=== PATIENT | male | born 1970 | race Caucasian/White ===

== ENCOUNTER 2016-10-03 11:54 | Emergency (ER) | payer MEDICAID ==
[2016-10-03 12:01] VITALS: RESP 18
[2016-10-03 12:23] LABS: COLOR YELLOW; LEUKOCYTE ESTERASE,URINE NEGATIVE (NEGATIVE); NITRITE,URINE NEGATIVE (NEGATIVE)
[2016-10-03] MEDS ORDERED: ONDANSETRON DISINTEGRATING 4 MG TAB PO ONE (12:27)
[2016-10-03] MEDS ORDERED: NS 500 ML IV ONE (12:27)
--- NOTE | 2016-10-03 12:33 | EDPHY ---
General - History Smoking Status: Current every day smoker Narrative: CHIEF COMPLAINT: Testicular pain and swelling HISTORY OF PRESENT ILLNESS: Testicular pain and swelling over the past 6 days. Mild on Tuesday. Now moderate to severe. No position of comfort. Worse with any kind of movement or palpation. Radiates up into the groin. No burning with urination but sometimes difficult to urinate. No fever or chills. No purulence or blood from the urethral meatus. He is not sexually active in months. No fever chills. No flank pain. No generalized abdominal pain. No other associated complaints or modifying factors. PREVIOUS SURGERIES/DIAGNOSES: hydroceles x2, surgically repaired last year In [place] NPO: 2 hours REVIEW OF SYSTEMS: Ten systems reviewed and are negative unless otherwise noted in the HPI EXAMINATION: General Appearance: Alert, no distress , in obvious discomfort Head: normocephalic, atraumatic Respiratory: Lungs are clear to auscultation Cardiovascular: Regular rate and rhythm pulses intact distally. No murmur. Gastrointestinal: Abdomen is soft and nontender. No tympany. No rigidity. Non- acute abdomen. : Enlargement of bilateral hemiscrotum. There is testicular fullness and pain. No erythema or warmth to the scrotum. No subcutaneous emphysema or evidence of gangrene. No abnormality of the penis which is not circumcised. Cremasteric intact but painful Neurological: A&O, nonfocal, normal gait Skin: Warm and dry, no rash Extremities: Nontender, no pedal edema Psychiatric: Mood and affect normal DIFFERENTIAL DIAGNOSES: Including but not limited to Testicular torsion, hydrocele, varicocele, epididymitis, scrotal abscess MDM: 12:30 p.m. significant swelling of the scrotum with tenderness to palpation that is bilateral. The pain started 2 days ago. Examination is more consistent with hydrocele or varicocele than torsion or abscess. Patient is in significant amount of pain. Thus I will obtain laboratory studies, administer pain medication and we have ordered a stat ultrasound of the testicles. 1:45 p.m. notified by radiologist Dr. Rosario. Ultrasound of the scrotum reveals no torsion. No testicular abnormalities. Left hydrocele is significantly then evacuated. There is a mild right hydrocele with complexity. No other findings. 2:45 p.m. right hydrocele with no torsion or epididymitis. No left hydrocele. Pain is moderate to severe. Will be discharged home with oxycodone and instructed to see the urologist this week or return to ER for worsening pain, difficulty urinating or fever. Patient is comfortable this plan. ED Precautions: Worsening pain. Fever. Bloody stools. Bloody emesis. Constipation or diarrhea. SUPERVISION: This patient was independently evaluated without the aide of supervising physician. (Bhargav Ramey) Medical Decision Making: I did not see this patient while he was in the emergency department. However his care was discussed with the PA while the patient was in the department. I agree with treatment plan and management (Hadley Mcclellan) - Objective Vital Signs: Initial Vital Signs Temperature (C) 36.7 C 10/03/16 11:57 Heart Rate 98 10/03/16 11:57 Respiratory Rate 18 10/03/16 11:57 Blood Pressure 132/85 H 10/03/16 11:57 O2 Sat (%) 94 10/03/16 11:57 O2 Delivery Mode Room Air Allergies/Adverse Reactions: acetaminophen [From Tylenol] Allergy (Mild, Verified 10/03/16 11:57) Itching Home Medications: Medication Instructions Recorded Ondansetron Odt [Zofran Odt 4 mg 4 mg PO Q6 PRN #12 tab 10/03/16 (*)] Oxycodone HCl 5 mg PO Q6 PRN #20 capsule 10/03/16 Laboratory Results: Laboratory Results 10/03/16 11:43 10/03/16 11:43 Medications Given: Discontinued Medications Sodium Chloride (Ns) 500 mls @ 0 mls/hr IV ONCE ONE PRN Reason: Wide Open Stop: 10/03/16 12:28 Last Admin: 10/03/16 12:45 Dose: 500 mls Morphine Sulfate (Morphine) 6 mg IVP EDNOW ONE Stop: 10/03/16 12:31 Last Admin: 10/03/16 12:45 Dose: 6 mg Ondansetron HCl (Zofran Odt) 4 mg PO EDNOW ONE Stop: 10/03/16 12:28 Last Admin: 10/03/16 12:40 Dose: 4 mg Departure - Departure Disposition: Home, Routine, Self-Care Clinical Impression: Hydrocele Condition: Good Instructions: Hydrocele (ED) Additional Instructions: Scrotal elevation, rest, ice, follow up with Urology this week for definitive care. Return to ER for worsening pain or difficulty urinating Referrals: NONE *PRIMARY CARE P,. [Primary Care Provider] - As per Instructions Mario Padron MD [Medical Doctor] - As per Instructions Prescriptions: Ondansetron Odt [Zofran Odt 4 mg (*)] 4 mg PO Q6 PRN #12 tab PRN Reason: Nausea/Vomiting, Use 1st Oxycodone HCl 5 mg PO Q6 PRN #20 capsule PRN Reason: Pain, Moderate
[2016-10-03 13:04] LABS: % IMMATURE GRANULYOCYTES 0.4 % (0.0-1.1); ABSOLUTE IMMATURE GRANULOCYTES 0.03 10^3/uL (0.00-0.10); ADD DIFF? NO; ADD MORPH? NO; ADD SCAN? NO; ATYPICAL LYMPHOCYTE FLAG 0 (0-99); FRAGMENT RBC FLAG 0 (0-99); HEMATOCRIT 51.1 % (40.0-51.0); HEMOGLOBIN 17.6 g/dL (13.7-17.5); LEFT SHIFT FLG 0 (0-99); LIPEMIA HEMOLYSIS FLAG 90 (0-99); MEAN CELL HEMOGLOBIN 29.7 pg (27.9-34.1); MEAN CELL HEMOGLOBIN CONCENTR. 34.4 g/dL (32.4-36.7); MEAN CELL VOLUME 86.2 fL (81.5-99.8); MEAN PLATELET VOLUME 11.2 fL (8.7-11.7); PLATELET CLUMPS FLAG 0 (0-99); PLATELET COUNT 187 10^3/uL (150-400); RED BLOOD CELL COUNT 5.93 10^6/uL (4.40-6.38)
[2016-10-03 13:13] LABS: SEDIMENTATION RATE 5 MM/HR (0-15)
[2016-10-03 13:28] LABS: ANION GAP 12 mEq/L (8-16); C-REACTIVE PROTEIN 6.8 mg/L (<10.0); CALCIUM 9.6 mg/dL (8.5-10.4); CARBON DIOXIDE 24 mEq/l (22-31); CHLORIDE 106 mEq/L (97-110); CREATININE 1.1 mg/dL (0.7-1.3); GLOMERULAR FILTRATION RATE > 60; GLUCOSE 103 mg/dL (70-100); POTASSIUM 4.6 mEq/L (3.5-5.2); SODIUM 142 mEq/L (134-144)
[2016-10-03 14:56] VITALS: BP 135/94; PULSE 75; TEMP 97.7; O2SAT 92
== END 2016-10-03 14:56 | disposition home or self-care (01) ==
DX: N43.3 Hydrocele, unspecified (principal); F17.200 Nicotine dependence, unspecified, uncomplicated
CPT/HCPCS: 96374

== ENCOUNTER 2016-11-19 09:52 | Observation (INO) | payer SELFPAY ==
[2016-11-19] MEDS ORDERED: ONDANSETRON 4 MG/2 ML VIAL IVP ONE (09:59)
[2016-11-19] MEDS ORDERED: IPRATROPIUM/ALBUTEROL 3 ML DEYVIAL IH ONE (10:00)
[2016-11-19] MEDS ORDERED: ONDANSETRON 4 MG/2 ML VIAL ONE (10:01)
--- NOTE | 2016-11-19 10:03 | CPEKG ---
Heart Rate: 87 RR Interval: 690 P-R Interval: 128 QRSD Interval: 130 QT Interval: 400 QTC Interval: 482 P [place]: -82 QRS [place]: 36 T Wave [place]: 47 EKG Severity - ABNORMAL ECG - EKG Impression: SINUS OR ECTOPIC ATRIAL RHYTHM EKG Impression: RIGHT BUNDLE BRANCH BLOCK Electronically Signed By: Kennedy Brown 19-Nov-2016 13:55:08
[2016-11-19 10:08] LABS: % IMMATURE GRANULYOCYTES 0.4 % (0.0-1.1); ABSOLUTE IMMATURE GRANULOCYTES 0.04 10^3/uL (0.00-0.10); ADD DIFF? NO; ADD MORPH? NO; ADD SCAN? NO; ATYPICAL LYMPHOCYTE FLAG 10 (0-99); FRAGMENT RBC FLAG 0 (0-99); HEMATOCRIT 42.8 % (40.0-51.0); HEMOGLOBIN 14.4 g/dL (13.7-17.5); LEFT SHIFT FLG 0 (0-99); LIPEMIA HEMOLYSIS FLAG 80 (0-99); MEAN CELL HEMOGLOBIN 30.1 pg (27.9-34.1); MEAN CELL HEMOGLOBIN CONCENTR. 33.6 g/dL (32.4-36.7); MEAN CELL VOLUME 89.5 fL (81.5-99.8); PLATELET CLUMPS FLAG 0 (0-99); PLATELET COUNT 150 10^3/uL (150-400); RED BLOOD CELL COUNT 4.78 10^6/uL (4.40-6.38); RED CELL DISTRIBUTION WIDTH 13.6 % (11.5-15.2)
--- NOTE | 2016-11-19 10:08 | EDPHY ---
H & P Source: Patient, EMS - Medical/Surgical History Hx Asthma: Yes Hx Chronic Respiratory Disease: Yes Hx Diabetes: No Hx Cardiac Disease: Yes Hx Renal Disease: No Hx Cirrhosis: No Hx Alcoholism: No Hx HIV/AIDS: No Hx Splenectomy or Spleen Trauma: No Other PMH: copd, aortic valve replacement. hydrocele surgery Apr 2016 - Social History Smoking Status: Current every day smoker HPI/ROS: CHIEF COMPLAINT: Chest Pain HISTORY OF PRESENT ILLNESS: Sudden onset of chest pain or shortness of breath that started 1 hour ago while at work. 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 This is a right- sided, localized pain. It is worse with any kind of movement or deep inspiration. Associated shortness of breath, wheezing. No cough. No recent illness. No lower extremity erythema or edema. 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 No recent travel or surgery in the past 2 weeks. No diagnosis of congestive heart failure. Patient arrives by EMS and is seen at time of arrival. He is hypoxic but in no acute distress. Aspirin was given by EMS. No other associated complaints or modifying factors. PRIOR CARDIAC WORKUP: Endocarditis, valvular repair, COPD REVIEW OF SYSTEMS: Ten systems reviewed and are negative unless otherwise noted in the HPI EXAMINATION: General Appearance: Obese body habitus. Alert, no distress Head: normocephalic, atraumatic Eyes: Pupils equal and round, no conjunctival pallor or injection ENT, Mouth: Mucous membranes moist uvula midline. Neck: Normal inspection, supple, non-tender Respiratory: Coarse rhonchi. Some diminishment. Mild crackles. No retractions or distress. Cardiovascular: Regular rate and rhythm. Systolic murmur. Pulses intact distally. Gastrointestinal: Obese Abdomen is soft and nontender Neurological: GCS 15. A&O, nonfocal. Strength is symmetric Skin: Warm and dry, no rash. No petechiae or purpura. Extremities: Nontender, no pedal edema Psychiatric: Mood and affect normal DIFFERENTIAL DIAGNOSES: Including but not limited to in no particular order: Acute Chest Pain, ACS, Stable Angina, Pneumonia, PE, duodenitis, gastritis, esophagitis, GERD MDM: 10:03 a.m. Chest pain or shortness of breath with hypoxia. He is not tachycardic but he is mildly tachypneic. Patient has a history of previous endocarditis, status post valvular repair. This is allograft. He is not anticoagulated. He denies history of hypertension, congestive heart failure or OK. Patient does appear ill, thus we have ordered blood cultures, lactic acid, CT scan of the chest rule out PE, and stack echocardiogram. He does not trigger SIRS, but we have ordered cultures and lactic acid. 10:30 a.m. Lactic acid is negative. There is mild leukocytosis. Troponin is not yet resulted. Echocardiogram is currently being performed at bedside in the emergency department. We will proceed with CT angiography following up. 10:50 a.m. Troponin and BNP are pending. He has just returned from CT and remains stable with mild hypoxia. 11:08 a.m. Troponin and BNP are resulted. The BNP is minimally elevated. Troponin is negative. CT scan of the chest has not yet been interpreted by radiologist. 11:13 a.m. Contacted by radiologist Dr. Bee. No PE. No evidence of COPD on the scan. Does note some bronchial wall thickening with mild mucus plugging on the left. Also incidental note of bilateral/redundant SVC. 11:20 a.m. I have discussed the case with the hospitalist. Patient will be admitted to observation status, EACU bed to Dr. Brothers. He is admitted in stable condition. EKG: Interpreted by Dr. Brown SUPERVISION: Patient was evaluated in conjunction with the supervising physician. Please see their note for details. (Bhargav Ramey) Constitutional: Initial Vital Signs Temperature (C) 98.1 F 11/19/16 09:52 Heart Rate 87 11/19/16 09:52 Respiratory Rate 25 H 11/19/16 09:52 Blood Pressure 133/64 H 11/19/16 09:52 O2 Sat (%) 91 L 11/19/16 09:52 O2 Delivery Mode Nasal Cannula O2 (L/minute) 4 Allergies/Adverse Reactions: acetaminophen [From Tylenol] Allergy (Mild, Verified 10/03/16 11:57) Itching Home Medications: Medication Instructions Recorded Ondansetron Odt [Zofran Odt 4 mg 4 mg PO Q6 PRN #12 tab 10/03/16 (*)] Oxycodone HCl 5 mg PO Q6 PRN #20 capsule 10/03/16 Medical Decision Making - Diagnostics Imaging Results: Imaging Impressions Chest/Thorax CTA 11/19/16 09:59 Impression: 1. No evidence of pulmonary embolus using CT protocol. 2. Normal contour to the thoracic aorta. 3. Mild bronchial wall thickening to the lower lobes with minimal mucus plugging on the left. Rule out mild bronchitis, reactive airways disease, or viral process. 4. Incidental duplicated SVC. Findings discussed with SADIE Pickard at 11:11 hour, 11/19/2016. Other Provider: 1000: Personally evaluated this patient alongside RUBIO Ramey. 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 He is not anticoagulated. He does have a smoking history. He continues to have significant anterior chest pain with shortness of breath on examination and is hypoxemic in the 88% range on 4LPM O2. I discussed treatment plan with RUBIO Ramey. Plan for IV, sepsis and respiratory labs, EKG, echocardiogram, and chest CTA. Symptomatic treatment with Zofran, Morphine, and duoneb. (Kennedy Brown) - Data Points Laboratory Results: Laboratory Results 11/19/16 09:50 11/19/16 09:50 11/19/16 11/19/16 11/19/16 10:10 09:56 09:50 WBC RBC Hgb POC Hgb 15.0 gm/dL gm/dL (14.5-17.3) Hct POC Hct 44 % % (42.8-50.6) MCV MCH MCHC RDW Plt Count MPV Neut % (Auto) Lymph % (Auto) Taliaferro % (Auto) Eos % (Auto) Baso % (Auto) Nucleat RBC Rel Count Absolute Neuts (auto) Absolute Lymphs (auto) Absolute Monos (auto) Absolute Eos (auto) Absolute Basos (auto) Absolute Nucleated RBC Immature Gran % Immature Gran # PT INR APTT VBG Lactic Acid 0.9 mmol/L mmol/L (0.7-2.1) POC Sodium 142 mEq/L mEq/L (134-144) Sodium 141 mEq/L mEq/L (134-144) POC Potassium 3.5 mEq/L mEq/L (3.3-5.0) Potassium 3.8 mEq/L mEq/L (3.5-5.2) POC Chloride 101 mEq/L mEq/L (96-108) Chloride 105 mEq/L mEq/L (97-110) Carbon Dioxide 26 mEq/l mEq/l (22-31) Anion Gap 10 mEq/L mEq/L (8-16) POC BUN 15 mg/dL mg/dL (7-23) BUN 15 mg/dL mg/dL (7-23) Creatinine 0.8 mg/dL mg/dL (0.7-1.3) POC Creatinine 0.9 mg/dL mg/dL (0.8-1.5) Estimated GFR > 60 Glucose 94 mg/dL mg/dL (70-100) POC Glucose 96 mg/dL mg/dL (70-100) Calcium 8.9 mg/dL mg/dL (8.5-10.4) Total Bilirubin 0.7 mg/dL mg/dL (0.1-1.4) Conjugated Bilirubin 0.5 mg/dL mg/dL (0.0-0.5) Unconjugated Bilirubin 0.2 mg/dL mg/dL (0.0-1.1) AST 51 IU/L IU/L (17-59) ALT 61 IU/L IU/L (21-72) Alkaline Phosphatase 110 IU/L IU/L (38-126) Troponin I < 0.012 ng/mL ng/mL (0-0.034) NT-Pro-B Natriuret Pep 138 pg/mL H pg/mL (0-125) Total Protein 6.6 g/dL g/dL (6.3-8.2) Albumin 4.1 g/dL g/dL (3.5-5.0) Lipase 56.0 IU/L IU/L (23-300) 11/19/16 11/19/16 09:50 09:50 WBC 9.73 10^3/uL H 10^3/uL (3.80-9.50) RBC 4.78 10^6/uL 10^6/uL (4.40-6.38) Hgb 14.4 g/dL g/dL (13.7-17.5) POC Hgb Hct 42.8 % % (40.0-51.0) POC Hct MCV 89.5 fL fL (81.5-99.8) MCH 30.1 pg pg (27.9-34.1) MCHC 33.6 g/dL g/dL (32.4-36.7) RDW 13.6 % % (11.5-15.2) Plt Count 150 10^3/uL 10^3/uL (150-400) MPV 11.0 fL fL (8.7-11.7) Neut % (Auto) 69.2 % % (39.3-74.2) Lymph % (Auto) 19.0 % % (15.0-45.0) Taliaferro % (Auto) 9.8 % % (4.5-13.0) Eos % (Auto) 1.3 % % (0.6-7.6) Baso % (Auto) 0.3 % % (0.3-1.7) Nucleat RBC Rel Count 0.0 % % (0.0-0.2) Absolute Neuts (auto) 6.73 10^3/uL H 10^3/uL (1.70-6.50) Absolute Lymphs (auto) 1.85 10^3/uL 10^3/uL (1.00-3.00) Absolute Monos (auto) 0.95 10^3/uL H 10^3/uL (0.30-0.80) Absolute Eos (auto) 0.13 10^3/uL 10^3/uL (0.03-0.40) Absolute Basos (auto) 0.03 10^3/uL 10^3/uL (0.02-0.10) Absolute Nucleated RBC 0.00 10^3/uL 10^3/uL (0-0.01) Immature Gran % 0.4 % % (0.0-1.1) Immature Gran # 0.04 10^3/uL 10^3/uL (0.00-0.10) PT 13.6 SEC SEC (12.0-15.0) INR 1.05 (0.83-1.16) APTT 32.0 SEC SEC (23.0-38.0) VBG Lactic Acid POC Sodium Sodium POC Potassium Potassium POC Chloride Chloride Carbon Dioxide Anion Gap POC BUN BUN Creatinine POC Creatinine Estimated GFR Glucose POC Glucose Calcium Total Bilirubin Conjugated Bilirubin Unconjugated Bilirubin AST ALT Alkaline Phosphatase Troponin I NT-Pro-B Natriuret Pep Total Protein Albumin Lipase Medications Given: Discontinued Medications Albuterol/Ipratropium (Duoneb) 3 ml IH EDNOW ONE Stop: 11/19/16 10:01 Last Admin: 11/19/16 10:20 Dose: 3 ml Morphine Sulfate (Morphine) 4 mg IVP EDNOW ONE Stop: 11/19/16 10:00 Last Admin: 11/19/16 10:05 Dose: 4 mg Morphine Sulfate (Morphine) 4 mg IVP EDNOW ONE Stop: 11/19/16 10:22 Last Admin: 11/19/16 10:21 Dose: 4 mg Ondansetron HCl (Zofran) 4 mg IVP EDNOW ONE Stop: 11/19/16 10:00 Last Admin: 11/19/16 10:05 Dose: 4 mg Point of Care Test Results: 11/19/16 09:56 POC Sodium 142 POC Potassium 3.5 POC Chloride 101 POC BUN 15 POC Creatinine 0.9 POC Glucose 96 Departure - Departure Disposition: [facility] Inpatient Acute Clinical Impression: Hypoxia Chest pain Qualifiers: Chest pain type: unspecified Qualified Code(s): R07.9 - Chest pain, unspecified Condition: Fair
[2016-11-19 10:14] LABS: INR 1.05 (0.83-1.16); PROTIME(PATIENT) 13.6 SEC (12.0-15.0)
[2016-11-19] MEDS ORDERED: IOPAMIDOL (ISOVUE 370) 100 ML BTL IV ONE (10:21)
[2016-11-19 10:41] LABS: ALANINE AMINOTRANSFERASE 61 IU/L (21-72); ALBUMIN 4.1 g/dL (3.5-5.0); ALKALINE PHOSPHATASE 110 IU/L (38-126); ANION GAP 10 mEq/L (8-16); ASPARTATE AMINOTRANSFERASE 51 IU/L (17-59); BILIRUBIN,TOTAL 0.7 mg/dL (0.1-1.4); BILIRUBIN-CONJUGATED 0.5 mg/dL (0.0-0.5); BILIRUBIN-UNCONJUGATED 0.2 mg/dL (0.0-1.1); CALCIUM 8.9 mg/dL (8.5-10.4); CARBON DIOXIDE 26 mEq/l (22-31); CHLORIDE 105 mEq/L (97-110); CREATININE 0.8 mg/dL (0.7-1.3); GLOMERULAR FILTRATION RATE > 60; GLUCOSE 94 mg/dL (70-100); POTASSIUM 3.8 mEq/L (3.5-5.2); SODIUM 141 mEq/L (134-144); TOTAL PROTEIN 6.6 g/dL (6.3-8.2)
[2016-11-19 10:59] LABS: TROPONIN I < 0.012 ng/mL (0-0.034)
--- NOTE | 2016-11-19 11:36 | ECHO ---
[id number] + + [address] : : [place] [address] : : [phone] + + Adult Echocardiographic Report + ------+ :Name: MARIA ELENA KC RStudy Date: 11/19/2016 11:08 AM : : Hospital Admission Number: [id number] Locati on: ER: :: 1970 Gender: Male : :Age: 45 yrs Race: WH : :Reason For Study: Eval LV FX : :History: Chest Pain, AVR, MVR : + ------+ MMode/2D Measurements \T\ Calculations IVSd: 1.1 cm RVDd: 4.0 cm FS: 43.6 % Ao root diam: 3.2 cm LVPWd: 1.2 cm LVIDd: 5.4 cm EDV(Teich): 143.1 ml ACS: 1.7 cm LVIDs: 3.1 cm ESV(Teich): 36.7 ml EF(Teich): 74.3 % Normal Measurement Values: + + :LVIDd (3.5-5.7cm) IVSd (0.6-1.1cm) LVPWd (0.6-1.1cm) Aortic Root (2.0-3.7cm)Left Atrium (1.5-4.0cm): :LV Vol(d) (76-115ml) LV Vol(s) (29-48ml) Ejec Fraction (50-65%)PV Harvey (0.6- 1.2m/s) TV Harvey (0.4-1.0m/s) : :MV E Harvey (0.8-1.0m/s)MV A Harvey (0.3-1.0m/s)LVOT Harvey (0.7-1.2m/s) Asc Ao Harvey ( 0.9-1.8m/s) : + + Doppler Measurements \T\ Calculations MV V2 max: Ao V2 max: AI max harvey: LV V1 max: 106.0 cm/sec 212.0 cm/sec 381.0 cm/sec 103.0 cm/sec MV max PG: Ao max PG: AI max P.1 mmHg LV V1 max P.5 mmHg 18.0 mmHg AI dec slope: 4.2 mmHg MV V2 mean: Ao mean P.0 cm/sec2 68.3 cm/sec 8.0 mmHg AI P1/2t: 378.3 msec MV mean PG: Ao V2 mean: 2.0 mmHg 127.0 cm/sec MV V2 VTI: 29.8 cmAo V2 VTI: 34.6 cm Left Ventricle The left ventricle is normal in size. There is normal left ventricular wall thickness. The left ventricular ejection fraction is normal. Ejection Fraction = 74%. The left ventricular wall motion is normal. Right Ventricle The right ventricle is normal in size and function. Atria The left atrial size is normal. Right atrial size is normal. Mitral Valve There is no mitral valve stenosis. There is no mitral regurgitation noted. There is a bioprosthetic mitral valve. Prosthetic mitral valve peak and/or mean gradients are normal. Tricuspid Valve There is trace tricuspid regurgitation. Right ventricular systolic pressure is normal. Aortic Valve There is no aortic stenosis. Trace to mild aortic regurgitation. There is a bioprosthetic aortic valve. The gradient is normal for this prosthetic aortic valve. Pulmonic Valve The pulmonic valve is normal in structure and function. There is no pulmonic valvular regurgitation. Great Vessels The aortic root is normal size. Pericardium/Pleural There is no pericardial effusion. Conclusion A complete two-dimensional transthoracic echocardiogram was performed (2D, M-mode, Doppler and color flow Doppler). TDS pt was in severe pain during the study , which limits the quality. There is normal left ventricular wall thickness. The left ventricular ejection fraction is normal. Ejection Fraction = 74%. The left ventricular wall motion is normal. The right ventricle is normal in size and function. The left atrial size is normal. Right atrial size is normal. There is a bioprosthetic mitral valve. Prosthetic mitral valve peak and/or mean gradients are normal. There is trace tricuspid regurgitation. Right ventricular systolic pressure is normal. There is a bioprosthetic aortic valve. The gradient is normal for this prosthetic aortic valve. Trace to mild aortic regurgitation. There is no pericardial effusion. TDS pt was in severe pain during the study , which limits the quality. Final Reading Physician: Shayy Hoover signed on 11/19/2016 11:35 AM Ordering Physician: Kennedy Brown Performed By: Levi Palmer, CS
[2016-11-19 11:58] VITALS: O2SAT 94
[2016-11-19 12:22] VITALS: BP 109/60; PULSE 78; RESP 19; TEMP 97.5
--- NOTE | 2016-11-19 12:44 | PDEACUHP ---
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 My evaluation is limited by patients agitation and insistence on leaving AMA, therefore history is obtained purely by chart review. Apparently he had the acute onset of right sided chest pain and shortness of breath while at work, worse with deep inspiration or movement. On arrival in ER he was noted to be hypoxic though not in any acute distress. He was placed on oxymizer and sent to the floor. When he arrived in his room he became agitated with the nursing staff , took off his o2 and pulled at his IV. He was 70% on RA at that time. He became increasingly agitated and confrontational--cursing at nursing staff and rushing out of his room with his shirt off yelling that he needed his IV out so he could leave. He refused to sign AMA paperwork and was escorted out of the building with security. History Information - Allergies/Home Medication List Allergies/Adverse Reactions: acetaminophen [From Tylenol] Allergy (Mild, Verified 10/03/16 11:57) Itching I have personally reviewed and updated: family history, medical history, social history, surgical history - Past Medical History COPD Additional medical history: endocarditis with resultant aortic and mitral valve disease. bilateral hydrocele. 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 Review of Systems Review of Systems: unobtainable 2/2 patients agitation Physical Exam Physical Exam: physical exam unable to be performed due to patients agitation and desire to leave AMA Temp Pulse Resp BP Pulse Ox 36.4 C 78 19 109/60 94 11/19/16 12:21 11/19/16 12:21 11/19/16 12:21 11/19/16 12:21 11/19/16 12:21 O2 (L/minute) 5 Constitutional: obese, unkempt, other (agitated, yelling) Neurologic: other (normal gait) Psychiatric: anxious, agitated Lab Data & Imaging Review 11/19/16 09:50 11/19/16 09:50 WBC 9.73 10^3/uL (3.80-9.50) H 11/19/16 09:50 RBC 4.78 10^6/uL (4.40-6.38) 11/19/16 09:50 Hgb 14.4 g/dL (13.7-17.5) 11/19/16 09:50 POC Hgb 15.0 gm/dL (14.5-17.3) 11/19/16 09:56 Hct 42.8 % (40.0-51.0) 11/19/16 09:50 POC Hct 44 % (42.8-50.6) 11/19/16 09:56 MCV 89.5 fL (81.5-99.8) 11/19/16 09:50 MCH 30.1 pg (27.9-34.1) 11/19/16 09:50 MCHC 33.6 g/dL (32.4-36.7) 11/19/16 09:50 RDW 13.6 % (11.5-15.2) 11/19/16 09:50 Plt Count 150 10^3/uL (150-400) 11/19/16 09:50 MPV 11.0 fL (8.7-11.7) 11/19/16 09:50 Neut % (Auto) 69.2 % (39.3-74.2) 11/19/16 09:50 Lymph % (Auto) 19.0 % (15.0-45.0) 11/19/16 09:50 Hutchinson % (Auto) 9.8 % (4.5-13.0) 11/19/16 09:50 Eos % (Auto) 1.3 % (0.6-7.6) 11/19/16 09:50 Baso % (Auto) 0.3 % (0.3-1.7) 11/19/16 09:50 Nucleat RBC Rel Count 0.0 % (0.0-0.2) 11/19/16 09:50 Absolute Neuts (auto) 6.73 10^3/uL (1.70-6.50) H 11/19/16 09:50 Absolute Lymphs (auto) 1.85 10^3/uL (1.00-3.00) 11/19/16 09:50 Absolute Monos (auto) 0.95 10^3/uL (0.30-0.80) H 11/19/16 09:50 Absolute Eos (auto) 0.13 10^3/uL (0.03-0.40) 11/19/16 09:50 Absolute Basos (auto) 0.03 10^3/uL (0.02-0.10) 11/19/16 09:50 Absolute Nucleated RBC 0.00 10^3/uL (0-0.01) 11/19/16 09:50 Immature Gran % 0.4 % (0.0-1.1) 11/19/16 09:50 Immature Gran # 0.04 10^3/uL (0.00-0.10) 11/19/16 09:50 PT 13.6 SEC (12.0-15.0) 11/19/16 09:50 INR 1.05 (0.83-1.16) 11/19/16 09:50 APTT 32.0 SEC (23.0-38.0) 11/19/16 09:50 VBG Lactic Acid 0.9 mmol/L (0.7-2.1) 11/19/16 10:10 POC Sodium 142 mEq/L (134-144) 11/19/16 09:56 Sodium 141 mEq/L (134-144) 11/19/16 09:50 POC Potassium 3.5 mEq/L (3.3-5.0) 11/19/16 09:56 Potassium 3.8 mEq/L (3.5-5.2) 11/19/16 09:50 POC Chloride 101 mEq/L (96-108) 11/19/16 09:56 Chloride 105 mEq/L (97-110) 11/19/16 09:50 Carbon Dioxide 26 mEq/l (22-31) 11/19/16 09:50 Anion Gap 10 mEq/L (8-16) 11/19/16 09:50 POC BUN 15 mg/dL (7-23) 11/19/16 09:56 BUN 15 mg/dL (7-23) 11/19/16 09:50 Creatinine 0.8 mg/dL (0.7-1.3) 11/19/16 09:50 POC Creatinine 0.9 mg/dL (0.8-1.5) 11/19/16 09:56 Estimated GFR > 60 11/19/16 09:50 Glucose 94 mg/dL (70-100) 11/19/16 09:50 POC Glucose 96 mg/dL (70-100) 11/19/16 09:56 Calcium 8.9 mg/dL (8.5-10.4) 11/19/16 09:50 Total Bilirubin 0.7 mg/dL (0.1-1.4) 11/19/16 09:50 Conjugated Bilirubin 0.5 mg/dL (0.0-0.5) 11/19/16 09:50 Unconjugated Bilirubin 0.2 mg/dL (0.0-1.1) 11/19/16 09:50 AST 51 IU/L (17-59) 11/19/16 09:50 ALT 61 IU/L (21-72) 11/19/16 09:50 Alkaline Phosphatase 110 IU/L (38-126) 11/19/16 09:50 Troponin I < 0.012 ng/mL (0-0.034) 11/19/16 09:50 NT-Pro-B Natriuret Pep 138 pg/mL (0-125) H 11/19/16 09:50 Total Protein 6.6 g/dL (6.3-8.2) 11/19/16 09:50 Albumin 4.1 g/dL (3.5-5.0) 11/19/16 09:50 Lipase 56.0 IU/L (23-300) 11/19/16 09:50 Visualized and Interpreted imaging results: Yes Interpretation: CT angio chest: no PE, mild bronchitis versus viral illness with thickened broncioles and mucus plugging. echo: normal EF, prosthetic valves appear normally functioning Visualized and Interpreted EKG results: Yes EKG Interpretation: Positive for: normal sinsus rhythm, right bundle branch block Assessment & Plan Assessment: 45 yo M with PMH of COPD, endocarditis leading to aortic/mitral valve replacements admitted with chest pain and acute on chronic hypoxic respiratory failure # chest pain: apparently initially severe pain, at the time of my evaluation, patient agitated, leaving and does not appear to be in any acute distress. Echo w/o wall motion abnormality and ecg x1 without ischemic changes, trop negative x1. Further w/u abandoned including serial trops/ecgs and stress testing as patient left ama # acute on chronic hypoxic respiratory failure: with 02 of 70% on RA prior to leaving, patient running about and not dyspneic appearing, in fact yelling and rushing at staff. Suspect he has chronically low o2, acute worsening possibly related to copd exacerbation with e/o bronchitis on imaging versus related to 8mg of morphine given in ER. No PE or clear e/o pna. # copd: as above, likely acute on chronic but given inability to examine or obtain hx this is unclear # dispo: Discharged AMA Patient new to my care. Old records reviewed and summarized as above. Care plan reviewed with ER physician including plans for ACS r/o.
--- NOTE | 2016-11-19 13:06 | PDDCSUM ---
Discharge Summary Discharge Summary: Dates of service 11/19-11/19/16 Consultations: none Procedures performed: CTA chest, echocardiogram Hospital course by problem: # chest pain: w/u including trop/ecg/echo/CTA performed all w/o etiology for acute pain. Patient left AMA almost immediately after leaving the ER. Further w/ u deferred # acute on chronic hypoxic respiratory failure: 70% on RA shortly before leaving , appears asymptomatic and likely chronic # hx of endocarditis/aortic/mitral valve replacement: appear to be functioning normally, well seated on echo DC against medical advice, f/u care plan was not provided given that
== END 2016-11-19 12:28 | disposition left against medical advice (07) ==
LOC: EDUNIT# → F1N 11:57
PROVIDERS: ADMIT Internal Medicine; ATTEND Internal Medicine
DX: J96.11 Chronic respiratory failure with hypoxia (principal); J44.9 Chronic obstructive pulmonary disease, unspecified; F17.200 Nicotine dependence, unspecified, uncomplicated; Z59.0 Homelessness; E66.9 Obesity, unspecified; Z95.2 Presence of prosthetic heart valve; Z53.21 Procedure and treatment not carried out due to patient leaving prior to being seen by health care provider
CPT/HCPCS: 82947-QW; 96374; J2405; Q9967